=== PATIENT | female | born 1970 | race Caucasian/White ===

== ENCOUNTER 2020-07-02 12:51 | Inpatient (IN) | payer OTHER, MEDICAID, SELFPAY ==
[~2020-07-02] VITALS: Ht 160 cm; Wt 67.1 kg
[2020-07-02 13:35] VITALS: BP_SYST 152
[2020-07-02] MEDS ORDERED: ONDANSETRON HCL 4 MG/2 ML VIAL IVP ONE (15:30)
[2020-07-02 15:34] LABS: BASOPHILS % (AUTO) 0.7 % (0.0-2.0); EOSINOPHILS % (AUTO) 0.2 % (0.0-4.0); HEMOGLOBIN 9.2 g/dL (12.0-16.0); LYMPHOCYTES # (AUTO) 0.7 K/uL (1.0-5.5); LYMPHOCYTES % (AUTO) 11.9 % (20.5-51.5); MEAN CORPUSCULAR HEMOGLOBIN 32 pg (27-31); MEAN CORPUSCULAR HGB CONC 34 % (32-36); MEAN CORPUSCULAR VOLUME 93 fL (79.0-98.0); MONOCYTES # (AUTO) 0.5 K/uL (0.0-1.0); MONOCYTES % (AUTO) 7.8 % (1.7-9.3); NEUTROPHILS # (AUTO) 4.7 K/uL (1.8-7.7); NEUTROPHILS % (AUTO) 79.4 % (40.0-70.0); PLATELET COUNT (AUTO) 141 K/uL (130-430); RED BLOOD CELL COUNT(AUTO) 2.89 MIL/uL (4.2-6.2); RED CELL DISTRIBUTION WIDTH 13.3 % (9.0-15.0); WHITE BLOOD COUNT (AUTO) 5.9 K/uL (4.8-10.8)
[2020-07-02 15:56] LABS: ALBUMIN 3.2 g/dL (3.4-4.8); CREATININE 5.55 mg/dL (0.55-1.30); POTASSIUM 3.9 mmol/L (3.5-5.1); TOTAL BILIRUBIN 0.4 mg/dL (0.0-1.0)
[2020-07-02 16:00] LABS: PROTHROMBIN TIME 10.4 SECS (9.5-12.5)
[2020-07-02] MEDS ORDERED: ONDANSETRON 4 MG ODT TAB ONE (16:06)
[2020-07-02] MEDS ORDERED: ONDANSETRON HCL 4 MG/2 ML VIAL ONE (16:07)
[2020-07-02] MEDS ORDERED: AZITHROMYCIN 500 MG in NS 250 ML IV ONE (16:15)
[2020-07-02] MEDS ORDERED: DEXAMETHASONE SOD PHOSPHATE 10 MG/ML VIAL IVP ONE (16:15)
[2020-07-02 16:49] LABS: C-REACTIVE PROTEIN QUANT 3.3 mg/dL (0-0.5)
[2020-07-02 16:56] LABS: FIBRINOGEN 246 mg/dL (200-400)
[2020-07-02] MEDS ORDERED: AZITHROMYCIN 500 MG/VIAL (ZITHROMAX) IV ONE (17:03)
[2020-07-02] MEDS ORDERED: NOR10 PO (17:58)
[2020-07-02] MEDS ORDERED: CALC667T6 PO (17:58)
[2020-07-02] MEDS ORDERED: GABA-529 PO (17:58)
[2020-07-02] MEDS ORDERED: NEPH PO (17:58)
[2020-07-02] MEDS ORDERED: ALBUTEROL MDI INHALATION 8 GM INH INH PRN (18:15)
[2020-07-02] MEDS ORDERED: amLODIPine BESYLATE 10 MG TABLET PO ONE (18:30)
[2020-07-02] MEDS ORDERED: cefTRIAXone 1 GM in D5W 50 ML IV SCH (18:30)
[2020-07-02] MEDS ORDERED: cefTRIAXone 1 GM VIAL ONE (19:38)
[2020-07-02] MEDS: ACETAMINOPHEN 325 MG TABLET PO PRN (19:49)
[2020-07-03] MEDS: INSULIN REGULAR, HUMAN 100 UNITS/ML, 10 ML VIAL (humuLIN R) SUBCUT PRN ×4 (07:30→21:44)
[2020-07-03 07:57] LABS: BASOPHILS % (AUTO) 0.5 % (0.0-2.0); HEMATOCRIT 29.8 % (36-48); LYMPHOCYTES # (AUTO) 0.6 K/uL (1.0-5.5); LYMPHOCYTES % (AUTO) 16.3 % (20.5-51.5); MEAN CORPUSCULAR HEMOGLOBIN 31 pg (27-31); MEAN CORPUSCULAR HGB CONC 34 % (32-36); MEAN CORPUSCULAR VOLUME 93 fL (79.0-98.0); MONOCYTES # (AUTO) 0.3 K/uL (0.0-1.0); MONOCYTES % (AUTO) 8.4 % (1.7-9.3); NEUTROPHILS # (AUTO) 2.9 K/uL (1.8-7.7); NEUTROPHILS % (AUTO) 74.8 % (40.0-70.0); PLATELET COUNT (AUTO) 134 K/uL (130-430); RED BLOOD CELL COUNT(AUTO) 3.19 MIL/uL (4.2-6.2); RED CELL DISTRIBUTION WIDTH 13.1 % (9.0-15.0); WHITE BLOOD COUNT (AUTO) 3.9 K/uL (4.8-10.8)
[2020-07-03 08:14] LABS: CALCIUM 7.5 mg/dL (8.4-11.0); CREATININE 6.21 mg/dL (0.55-1.30)
[2020-07-03] MEDS: NEPHROVITE, (FOLIC ACID/VITAMIN B COMP W-C 1 TAB) PO SCH (08:20)
[2020-07-03] MEDS: DECADRON 4 MG TABLET PO SCH (08:20)
[2020-07-03] MEDS: amLODIPine BESYLATE 10 MG TABLET PO SCH (08:21)
[2020-07-03] MEDS: ASCORBIC ACID 500 MG TABLET PO SCH (08:21)
[2020-07-03] MEDS: CHOLECALCIFEROL (VITAMIN D3) 2,000 UNIT TABLET PO SCH (08:21)
[2020-07-03 10:58] LABS: C-REACTIVE PROTEIN QUANT 3.6 mg/dL (0-0.5)
[2020-07-03] MEDS ORDERED: HEPARIN SODIUM,PORCINE 5,000 UNITS/ML VIAL ONE (21:25)
[2020-07-03] MEDS: cefTRIAXone 1 GM in D5W 50 ML IV SCH (23:00)
[2020-07-03] MEDS: AZITHROMYCIN 500 MG in NS 250 ML IV SCH (23:00)
[2020-07-04] VITALS: BP_SYST 118
[2020-07-04] MEDS: INSULIN REGULAR, HUMAN 100 UNITS/ML, 10 ML VIAL (humuLIN R) SUBCUT PRN ×4 (06:27→21:03)
[2020-07-04 08:44] LABS: BASOPHILS % (AUTO) 0.4 % (0.0-2.0); HEMATOCRIT 27.9 % (36-48); HEMOGLOBIN 9.6 g/dL (12.0-16.0); LYMPHOCYTES # (AUTO) 0.7 K/uL (1.0-5.5); LYMPHOCYTES % (AUTO) 8.6 % (20.5-51.5); MEAN CORPUSCULAR HEMOGLOBIN 32 pg (27-31); MEAN CORPUSCULAR HGB CONC 34 % (32-36); MEAN CORPUSCULAR VOLUME 93 fL (79.0-98.0); MONOCYTES # (AUTO) 0.5 K/uL (0.0-1.0); MONOCYTES % (AUTO) 6.7 % (1.7-9.3); NEUTROPHILS # (AUTO) 6.5 K/uL (1.8-7.7); NEUTROPHILS % (AUTO) 84.3 % (40.0-70.0); PLATELET COUNT (AUTO) 146 K/uL (130-430); RED BLOOD CELL COUNT(AUTO) 3.01 MIL/uL (4.2-6.2); RED CELL DISTRIBUTION WIDTH 13.3 % (9.0-15.0); WHITE BLOOD COUNT (AUTO) 7.7 K/uL (4.8-10.8)
[2020-07-04 08:46] VITALS: BP_SYST 141
[2020-07-04] MEDS: DECADRON 4 MG TABLET PO SCH (08:47)
[2020-07-04] MEDS: ASCORBIC ACID 500 MG TABLET PO SCH (08:48)
[2020-07-04] MEDS: CHOLECALCIFEROL (VITAMIN D3) 2,000 UNIT TABLET PO SCH (08:48)
[2020-07-04] MEDS: NEPHROVITE, (FOLIC ACID/VITAMIN B COMP W-C 1 TAB) PO SCH (08:48)
[2020-07-04] MEDS: amLODIPine BESYLATE 10 MG TABLET PO SCH (08:48)
[2020-07-04 09:06] LABS: CALCIUM 7.5 mg/dL (8.4-11.0); CREATININE 4.96 mg/dL (0.55-1.30); POTASSIUM 3.9 mmol/L (3.5-5.1); TOTAL BILIRUBIN 0.2 mg/dL (0.0-1.0)
[2020-07-04 11:44] VITALS: BP_SYST 127
[2020-07-04] MEDS: ACETAMINOPHEN 325 MG TABLET PO PRN (11:51)
[2020-07-04] MEDS ORDERED: *HEPARIN PER PHARMACY XX ONE (14:30)
[2020-07-04 16:00] VITALS: BP_SYST 131
[2020-07-04 16:36] LABS: INR 0.9 (0.8-1.2); PROTHROMBIN TIME 9.7 SECS (9.5-12.5)
[2020-07-04] MEDS ORDERED: HEPARIN SODIUM,PORCINE 3000 UNITS/0.6 ML BOLUS IVP PRN (17:15)
[2020-07-04] MEDS ORDERED: HEPARIN SODIUM,PORCINE 5,000 UNITS/ML VIAL IVP ONE (17:15)
[2020-07-04] MEDS ORDERED: HEPARIN SODIUM,PORCINE 2000 UNITS/0.4 ML BOLUS IVP PRN (17:15)
[2020-07-04] MEDS: HEPARIN 25,000 UNITS in 250 ML PREMIX IV PRN (17:29)
[2020-07-04 20:00] VITALS: BP_SYST 129
[2020-07-04] MEDS: cefTRIAXone 1 GM in D5W 50 ML IV SCH (20:52)
[2020-07-04] MEDS: AZITHROMYCIN 500 MG in NS 250 ML IV SCH (21:00)
[2020-07-05] VITALS: BP_SYST 132
[2020-07-05] MEDS: INSULIN REGULAR, HUMAN 100 UNITS/ML, 10 ML VIAL (humuLIN R) SUBCUT PRN ×3 (06:41→21:00)
[2020-07-05 08:00] VITALS: BP_SYST 123
[2020-07-05] MEDS: DECADRON 4 MG TABLET PO SCH (09:00)
[2020-07-05] MEDS: CHOLECALCIFEROL (VITAMIN D3) 2,000 UNIT TABLET PO SCH (09:00)
[2020-07-05] MEDS: amLODIPine BESYLATE 10 MG TABLET PO SCH (09:00)
[2020-07-05] MEDS: ASCORBIC ACID 500 MG TABLET PO SCH (09:00)
[2020-07-05] MEDS: NEPHROVITE, (FOLIC ACID/VITAMIN B COMP W-C 1 TAB) PO SCH (09:00)
[2020-07-05 12:00] VITALS: BP_SYST 112
[2020-07-05 16:00] VITALS: BP_SYST 117
[2020-07-05] MEDS: HEPARIN 25,000 UNITS in 250 ML PREMIX IV PRN (18:50)
[2020-07-05] MEDS ORDERED: HEPARIN SODIUM, PORCINE 10,000 UNITS/ 10 ML VIAL MC ONE (19:15)
[2020-07-05 20:00] VITALS: BP_SYST 135
[2020-07-05] MEDS: cefTRIAXone 1 GM in D5W 50 ML IV SCH (21:00)
[2020-07-05] MEDS: AZITHROMYCIN 500 MG in NS 250 ML IV SCH (22:00)
[2020-07-06] VITALS: BP_SYST 125
[2020-07-06] MEDS: INSULIN REGULAR, HUMAN 100 UNITS/ML, 10 ML VIAL (humuLIN R) SUBCUT PRN ×2 (07:04→18:38)
[2020-07-06 08:44] LABS: BASOPHILS % (AUTO) 0.2 % (0.0-2.0); HEMATOCRIT 23.2 % (36-48); HEMOGLOBIN 7.9 g/dL (12.0-16.0); LYMPHOCYTES # (AUTO) 0.7 K/uL (1.0-5.5); LYMPHOCYTES % (AUTO) 14.8 % (20.5-51.5); MEAN CORPUSCULAR HEMOGLOBIN 31 pg (27-31); MEAN CORPUSCULAR HGB CONC 34 % (32-36); MEAN CORPUSCULAR VOLUME 92 fL (79.0-98.0); MONOCYTES # (AUTO) 0.4 K/uL (0.0-1.0); MONOCYTES % (AUTO) 9.3 % (1.7-9.3); NEUTROPHILS # (AUTO) 3.5 K/uL (1.8-7.7); NEUTROPHILS % (AUTO) 75.7 % (40.0-70.0); PLATELET COUNT (AUTO) 126 K/uL (130-430); RED BLOOD CELL COUNT(AUTO) 2.52 MIL/uL (4.2-6.2); RED CELL DISTRIBUTION WIDTH 13.3 % (9.0-15.0); WHITE BLOOD COUNT (AUTO) 4.6 K/uL (4.8-10.8)
[2020-07-06] MEDS: CHOLECALCIFEROL (VITAMIN D3) 2,000 UNIT TABLET PO SCH (09:00)
[2020-07-06] MEDS: ASCORBIC ACID 500 MG TABLET PO SCH (09:00)
[2020-07-06] MEDS: NEPHROVITE, (FOLIC ACID/VITAMIN B COMP W-C 1 TAB) PO SCH (09:00)
[2020-07-06] MEDS: amLODIPine BESYLATE 10 MG TABLET PO SCH (09:00)
[2020-07-06 09:10] LABS: ALBUMIN 2.4 g/dL (3.4-4.8); CREATININE 5.1 mg/dL (0.55-1.30); POTASSIUM 4.1 mmol/L (3.5-5.1); TOTAL BILIRUBIN 0.2 mg/dL (0.0-1.0)
[2020-07-06 09:28] LABS: CALCIUM 6.8 mg/dL (8.4-11.0)
[2020-07-06 11:01] VITALS: BP_SYST 146
[2020-07-06 12:00] VITALS: BP_SYST 122; BP_SYST 149
[2020-07-06] MEDS: DOCUSATE SODIUM 250 MG CAPSULE PO SCH (13:30)
[2020-07-06] MEDS ORDERED: DOCUSATE SODIUM 250 MG CAPSULE PO ONE (14:58)
[2020-07-06 15:26] VITALS: BP_SYST 131
[2020-07-06 16:00] VITALS: BP_SYST 121
[2020-07-06 20:00] VITALS: BP_SYST 124
[2020-07-06] MEDS: DOXYCYCLINE HYCLATE 100 MG CAPSULE PO SCH (21:00)
[2020-07-06] MEDS: cefTRIAXone 1 GM in D5W 50 ML IV SCH (21:00)
[2020-07-07] VITALS: BP_SYST 134
[2020-07-07] MEDS: HEPARIN 25,000 UNITS in 250 ML PREMIX IV PRN (01:50)
[2020-07-07 08:00] VITALS: BP_SYST 107
[2020-07-07 08:53] LABS: CREATININE 6.52 mg/dL (0.55-1.30); PHOSPHORUS 4.8 mg/dL (2.7-4.5); POTASSIUM 4.5 mmol/L (3.5-5.1)
[2020-07-07 08:59] LABS: CALCIUM 6.5 mg/dL (8.4-11.0)
[2020-07-07] MEDS: CHOLECALCIFEROL (VITAMIN D3) 2,000 UNIT TABLET PO SCH (09:00)
[2020-07-07] MEDS: ASCORBIC ACID 500 MG TABLET PO SCH (09:00)
[2020-07-07] MEDS: amLODIPine BESYLATE 10 MG TABLET PO SCH (09:00)
[2020-07-07] MEDS: NEPHROVITE, (FOLIC ACID/VITAMIN B COMP W-C 1 TAB) PO SCH (09:00)
[2020-07-07] MEDS: DOXYCYCLINE HYCLATE 100 MG CAPSULE PO SCH ×2 (09:00→22:30)
[2020-07-07] MEDS: DOCUSATE SODIUM 250 MG CAPSULE PO SCH (09:00)
[2020-07-07] MEDS ORDERED: CALCIUM 500 MG/TAB PO PRN (09:00)
[2020-07-07 12:00] VITALS: BP_SYST 136
[2020-07-07] MEDS ORDERED: HEPARIN SODIUM,PORCINE 5,000 UNITS/ML VIAL IVP ONE (12:00)
[2020-07-07] MEDS ORDERED: HEPARIN SODIUM, PORCINE 10,000 UNITS/ 10 ML VIAL ONE (12:27)
[2020-07-07] MEDS ORDERED: ONDANSETRON HCL 4 MG/2 ML VIAL ONE (12:27)
[2020-07-07 16:00] VITALS: BP_SYST 143
[2020-07-07] MEDS ORDERED: CALCIUM CHLORIDE 1 GM in NS 100 ML IV ONE (18:30)
[2020-07-07 20:00] VITALS: BP_SYST 136
[2020-07-07] MEDS: cefTRIAXone 1 GM in D5W 50 ML IV SCH (21:00)
[2020-07-07] MEDS ORDERED: CALCIUM CHLORIDE 1 GM/10ML VIAL (13.6 mEq Ca++/VIAL) ONE (21:34)
[2020-07-08 00:15] VITALS: BP_SYST 124
[2020-07-08] MEDS: HEPARIN 25,000 UNITS in 250 ML PREMIX IV PRN ×2 (01:28→10:33)
[2020-07-08] MEDS: ACETAMINOPHEN 325 MG TABLET PO PRN ×2 (01:30→18:32)
[2020-07-08] MEDS: ONDANSETRON HCL 4 MG/2 ML VIAL IVP PRN (01:58)
[2020-07-08 08:00] VITALS: BP_SYST 114
[2020-07-08 08:32] LABS: CREATININE 5.98 mg/dL (0.55-1.30); POTASSIUM 3.7 mmol/L (3.5-5.1)
[2020-07-08] MEDS: amLODIPine BESYLATE 10 MG TABLET PO SCH (09:00)
[2020-07-08] MEDS: CHOLECALCIFEROL (VITAMIN D3) 2,000 UNIT TABLET PO SCH (09:04)
[2020-07-08] MEDS: NEPHROVITE, (FOLIC ACID/VITAMIN B COMP W-C 1 TAB) PO SCH (09:04)
[2020-07-08] MEDS: DOXYCYCLINE HYCLATE 100 MG CAPSULE PO SCH ×2 (09:04→21:49)
[2020-07-08] MEDS: ASCORBIC ACID 500 MG TABLET PO SCH (09:04)
[2020-07-08] MEDS: CALCIUM ACETATE 667 MG CAP PO SCH ×3 (09:04→17:34)
[2020-07-08] MEDS: DOCUSATE SODIUM 250 MG CAPSULE PO SCH (09:04)
[2020-07-08 09:27] LABS: CALCIUM 6.8 mg/dL (8.4-11.0)
[2020-07-08] MEDS ORDERED: CALCIUM GLUCONATE 1 GM in NS 100 ML IV ONE (10:30)
[2020-07-08] MEDS: INSULIN REGULAR, HUMAN 100 UNITS/ML, 10 ML VIAL (humuLIN R) SUBCUT PRN ×2 (11:30→21:57)
[2020-07-08] MEDS ORDERED: CALCIUM GLUCONATE 1 GM/10 ML VIAL ONE (11:35)
[2020-07-08 13:07] VITALS: BP_SYST 111
[2020-07-08 16:24] VITALS: BP_SYST 119
[2020-07-08] MEDS: cefTRIAXone 1 GM in D5W 50 ML IV SCH (21:00)
[2020-07-08 21:45] VITALS: BP_SYST 108
[2020-07-09] MEDS: ACETAMINOPHEN 325 MG TABLET PO PRN ×3 (05:53→20:03)
[2020-07-09] MEDS: ONDANSETRON HCL 4 MG/2 ML VIAL IVP PRN ×2 (06:24→20:03)
[2020-07-09] MEDS: amLODIPine BESYLATE 10 MG TABLET PO SCH (08:31)
[2020-07-09] MEDS: DOCUSATE SODIUM 250 MG CAPSULE PO SCH (08:31)
[2020-07-09] MEDS: NEPHROVITE, (FOLIC ACID/VITAMIN B COMP W-C 1 TAB) PO SCH (08:32)
[2020-07-09] MEDS: CALCIUM ACETATE 667 MG CAP PO SCH ×3 (08:32→17:54)
[2020-07-09] MEDS: ASCORBIC ACID 500 MG TABLET PO SCH (08:32)
[2020-07-09] MEDS: CHOLECALCIFEROL (VITAMIN D3) 2,000 UNIT TABLET PO SCH (08:32)
[2020-07-09] MEDS: DOXYCYCLINE HYCLATE 100 MG CAPSULE PO SCH (08:32)
[2020-07-09] MEDS: HEPARIN 25,000 UNITS in 250 ML PREMIX IV PRN (09:36)
[2020-07-09 09:37] VITALS: BP_SYST 110
[2020-07-09 13:33] VITALS: BP_SYST 112
[2020-07-09] MEDS ORDERED: HEPARIN SODIUM,PORCINE 5,000 UNITS/ML VIAL IV ONE (18:15)
[2020-07-09 18:47] VITALS: BP_SYST 147
[2020-07-09 19:17] VITALS: BP_SYST 156
== END 2020-07-09 21:30 | disposition home or self-care (01) | DRG 177 ==
LOC: SED 14:46 → SMU 16:54
PROVIDERS: ADMIT Family Medicine; ATTEND Family Medicine
PROC: 5A1D70Z Performance of Urinary Filtration, Intermittent, Less than 6 Hours Per Day (ICD-10-PCS; principal; 2020-07-03)
PROC: 5A1D70Z Performance of Urinary Filtration, Intermittent, Less than 6 Hours Per Day (ICD-10-PCS; 2020-07-05)
PROC: 5A1D70Z Performance of Urinary Filtration, Intermittent, Less than 6 Hours Per Day (ICD-10-PCS; 2020-07-07)
PROC: 5A1D70Z Performance of Urinary Filtration, Intermittent, Less than 6 Hours Per Day (ICD-10-PCS; 2020-07-09)
DX: U07.1 COVID-19 (principal); N18.6 End stage renal disease; J12.82 Pneumonia due to coronavirus disease 2019; I12.0 Hypertensive chronic kidney disease with stage 5 chronic kidney disease or end stage renal disease; E11.22 Type 2 diabetes mellitus with diabetic chronic kidney disease; E11.65 Type 2 diabetes mellitus with hyperglycemia; E78.5 Hyperlipidemia, unspecified; R09.02 Hypoxemia; T38.0X5A Adverse effect of glucocorticoids and synthetic analogues, initial encounter; Y92.89 Other specified places as the place of occurrence of the external cause; Z99.2 Dependence on renal dialysis; Z98.891 History of uterine scar from previous surgery; E83.51 Hypocalcemia; Z11.52 Encounter for screening for COVID-19
CPT/HCPCS: 36415; 36600; 71045; 80048; 80053; 82550-TC; 82728; 82803-TC; 82962; 83605; 83615-TC; 83880; 84100-TC; 84484; 85025; 85379; 85384-TC; 85610-TC; 85730-TC; 86140; 86886; 86900; 86901; 87230-TC; 90935; 90937; 93005; 96365; 96375; 99285; J0456; J0610; J0696; J1100; J1644; J1815; J2405; J7030; J7050; J7060; J8540; Q0162